=== PATIENT | male | born 1965 | race Caucasian/White ===

== ENCOUNTER 2017-02-19 20:35 | Emergency (ER) | payer BC ==
[~2017-02-19 20:35] MED LIST: ASPI81 PO; ATOR40TA PO; CIPR500T4 PO; HYDR12.56 PO; LISI10 PO; LOFI54TA PO; METO25 PO; METR-1 PO; RAPA1TAB PO; SUPETAB30 PO
[2017-02-19 20:39] VITALS: BP 145/68; PULSE 74; RESP 20; TEMP 98.4; O2SAT 94
[2017-02-19] MEDS ORDERED: LIPI40TA PO (21:32)
[2017-02-19] MEDS ORDERED: HYDR12.57 PO (21:32)
[2017-02-19] MEDS ORDERED: ASPI81CH CHEW (21:32)
[2017-02-19] MEDS ORDERED: METO25TA3 PO (21:32)
[2017-02-19] MEDS ORDERED: SIRO1TAB4 PO (21:32)
[2017-02-19] MEDS ORDERED: LISI-515 PO (21:32)
[2017-02-19] MEDS ORDERED: CLIN1CAP5 PO (21:37)
--- NOTE | 2017-02-19 21:43 | PD ---
HPI Chief Complaint: Skin Problem Time Seen by Provider: 21:33 Travel History International Travel<30 days: No Contact w/Intl Traveler<30days: No Traveled to known affect area: No History of Present Illness HPI 51-year-old male that presents to the ED for evaluation of insect bite. Patient was bit by something yesterday. Per patient she is not sure what it was. Patient does have a significant history including kidney transplant in 2005. He takes immunosuppressants daily. Patient is concerning for infection. Patient has an area of erythema on the of the right leg. Nontender. Slightly warm to the touch and indurated. No other medical issues reported. No fevers chills or sweats. PFSH Past Medical History Anemia: Yes Blood Disorders: No Anxiety: No Depression: No Cancer: No Cardiovascular Problems: Yes (htn) High Cholesterol: Yes Chemotherapy: No Diabetes: No Diminished Hearing: Yes (BILAT) Endocrine: No Genitourinary: Yes Hypertension: Yes Immune Disorder: Yes (RISK FOR INFECTION DUE TO KIDNEY TRANSPLANT) Musculoskeletal: No Neurologic: No Psychiatric: No Reproductive: No Respiratory: No Integumentary: Yes (FUNGAL INFECTION IN TOE NAILS) Radiation Therapy: No Renal Failure: Yes Thyroid Disease: No Tetanus Vaccination: < 5 Years Influenza Vaccination: Yes Past Surgical History Abdominal Surgery: Yes (JACOB) AICD: No Appendectomy: Yes (2002) Arteriovenous Shunt: No Genitourinary Surgery: Yes (RIGHT KIDNEY TRANSPLANT 2005) Insulin Pump: No Joint Replacement: No Pacemaker: No Thoracic Surgery: Yes (FATTY TUMOR REMOVED RIGHT BREAST 1995) Other Surgery: Yes (O6' KIDNEY TRANSPLANT, 03' AV FISTULA AND APPY, 98' CHEST CYST REMOVED) Social History Alcohol Use: Yes (VERY RARELY) Tobacco Use: No Substance Use: No Allergies-Medications (Allergen,Severity, Reaction): Coded Allergies: diphenhydramine (Unverified Allergy, Intermediate, Hallucinations, 02/19/17) PT BECOMES PARANOID, IF MED IS NEEDED FOR REACTION OF OTHER MEDS, PT WILL TAKE BENDADRYL diatrizoate meglumine (Unverified Allergy, Mild, HIVES, 02/19/17) gadobenic acid (Unverified Allergy, Mild, HIVES, 02/19/17) gadodiamide (Unverified Allergy, Mild, HIVES, 02/19/17) gadoteridol (Unverified Allergy, Mild, HIVES, 02/19/17) iodixanol (Unverified Allergy, Mild, HIVES, 02/19/17) iohexol (Unverified Allergy, Mild, HIVES, 02/19/17) Reported Meds & Prescriptions Reported Meds & Active Scripts Active Clindamycin (Clindamycin HCl) 150 Mg Cap 300 Mg PO Q6H 10 Days Reported Aspirin 81 Mg Chew 81 Mg CHEW DAILY Lipitor (Atorvastatin Calcium) 40 Mg Tab 40 Mg PO HS Hydrochlorothiazide 12.5 Mg Cap 12.5 Mg PO DAILY Lisinopril 20 Mg Tab 20 Mg PO DAILY Metoprolol Tartrate 25 Mg Tab 25 Mg PO BID Sirolimus 2 Mg Tab 2 Mg PO DAILY Review of Systems Except as stated in HPI: all other systems reviewed are Neg Physical Exam Narrative GENERAL: SKIN: Warm and dry. HEAD: Atraumatic. Normocephalic. EYES: Pupils equal and round. No scleral icterus. No injection or drainage. ENT: No nasal bleeding or discharge. Mucous membranes pink and moist. NECK: Trachea midline. No JVD. CARDIOVASCULAR: Regular rate and rhythm. RESPIRATORY: No accessory muscle use. Clear to auscultation. Breath sounds equal bilaterally. GASTROINTESTINAL: Abdomen soft, non-tender, nondistended. Hepatic and splenic margins not palpable. MUSCULOSKELETAL: Extremities without clubbing, cyanosis, or edema. No obvious deformities. Full range of motion of the upper and lower extremities bilaterally. 2+ pulses bilaterally. Patient has a insect bite to the right with induration of about 2 cm. no purulence noted. Erythema noted. Slightly warm to the touch. NEUROLOGICAL: Awake and alert. No obvious cranial nerve deficits. Motor grossly within normal limits. Five out of 5 muscle strength in the arms and legs. Normal speech. PSYCHIATRIC: Appropriate mood and affect; insight and judgment normal. Data Data Last Documented VS Vital Signs Date Time Temp Pulse Resp B/P (MAP) Pulse Ox O2 Delivery O2 Flow Rate FiO2 02/19/17 20:39 98.4 74 20 145/68 (93) 94 Orders Orders Clindamycin Inj (Cleocin Inj) (02/19/17 21:45) MDM Medical Decision Making Medical Screen Exam Complete: Yes Emergency Medical Condition: Yes Medical Record Reviewed: Yes Differential Diagnosis Abscesses versus cellulitis versus normal exam Narrative Course 51-year-old male that presents to the ED for evaluation of insect bite. Patient was properly examined and was found to have signs and symptoms consistent appears to be insect bite. Likely infected. I will start patient on clindamycin and given a prescription for this. Patient was told to follow with PCP. Recheck in 2 days if he continues to get worse. This time I do not see any sign of abscess and I do not recommend draining it. Patient agrees with plan. See ED for any worsening symptoms. Diagnosis Primary Impression: Infected bite of lower leg Qualified Codes: S81.851A - Open bite, right lower leg, initial encounter; L08.9 - Local infection of the skin and subcutaneous tissue, unspecified Patient Instructions: General Instructions Additional Instructions: Take medication as prescribed. Follow with PCP. See ED worsening symptoms. Med/Other Pt SpecificInfo: Prescription(s) given Scripts Clindamycin (Clindamycin) 150 Mg Cap 300 MG PO Q6H for Infection for 10 Days, CAP 0 Refills Prov: Chanel Pineda MD 02/19/17 Disposition: 01 DISCHARGE HOME Condition: Stable Oren Steele Feb 19, 2017 21:43
[2017-02-19] MEDS ORDERED: CLINDAMYCIN PHOS 600 MG/4 ML VIAL IM ONE (21:45)
== END 2017-02-19 22:25 | disposition home or self-care (01) ==
LOC: PHED 20:35
DX: S81.851A Open bite, right lower leg, initial encounter (principal); L08.9 Local infection of the skin and subcutaneous tissue, unspecified; W57.XXXA Bitten or stung by nonvenomous insect and other nonvenomous arthropods, initial encounter; Z94.0 Kidney transplant status; I10 Essential (primary) hypertension; E78.00 Pure hypercholesterolemia, unspecified
CPT/HCPCS: 96372